=== PATIENT | male | born 1970 | race Caucasian/White ===

== ENCOUNTER 2025-10-27 18:18 | Emergency (ER) | payer OTHER, SELFPAY ==
[2025-10-27 18:34] VITALS: BP 139/76
[2025-10-27 19:03] LABS: Hematocrit 40.8 % (39.0-52.0); Hemoglobin 13.6 g/dL (13.0-18.0); Mean Corp Hgb Conc. 33.3 g/dL (33.0-37.0); Mean Corpuscular Volume 92.1 fL (80.0-94.0); Nucleated Red Blood Cells % 0 % (-); Platelet Count 289 10^3/uL (130-400); Red Cell Dist. Width 13.2 % (11.5-14.5)
[2025-10-27 19:16] LABS: ALT (SGPT) 29 U/L (0-50); AST (SGOT) 21 U/L (17-59); Albumin 4.5 g/dl (3.5-5.0); Alkaline Phosphatase 53 U/L (38-126); Blood Urea Nitrogen 14 mg/dl (9-20); Calcium 9.5 mg/dl (8.4-10.2); Chloride 101 mmol/L (98-107); Glucose 110 mg/dl (70-99); Potassium 4.2 mmol/L (3.5-5.1); Sodium 140 mmol/L (135-145); Total Protein 7.0 g/dl (6.3-8.2); eGFR > 60.00
[2025-10-27 19:24] LABS: Carbon Dioxide 31 mmol/L (22-30)
[2025-10-27 20:28] VITALS: BMI 28.4
[2025-10-27 20:31] VITALS: BP 119/70
[2025-10-27] MEDS: TORADOL 15 MG IM (21:23)
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
[2025-10-27 23:16] VITALS: BP 138/80
[2025-10-27] MEDS: KEFLEX 500 MG PO (23:20)
== END 2025-10-27 23:29 | disposition home or self-care (01) ==
LOC: EMR 18:18
PROVIDERS: Emergency Medicine; EMERGENCY PHYSICIAN Emergency Medicine
DX: L03.116 Cellulitis of left lower limb (principal); K21.9 Gastro-esophageal reflux disease without esophagitis
CPT/HCPCS: 99284; 96372; 80053; 83880; 85025; 93971